=== PATIENT | female | born 1985 | race Caucasian/White ===

== ENCOUNTER 2017-09-05 13:31 | Emergency (ER) | payer OTHER, SELFPAY ==
[2017-09-05] MEDS ORDERED: Metoclopramide HCl 10 MG/2 ML VIAL ONE (14:08)
[2017-09-05] MEDS ORDERED: Dicyclomine 20 MG TAB ONE (14:08)
[2017-09-05 14:38] LABS: #Basophils 0.1 thou/uL (0.0-0.2); #Eosinphils 0.1 thou/uL (0.0-0.7); #Lymphocytes 2.3 thou/uL (1.20-3.40); #Monocytes 0.3 thou/uL (0.11-0.59); #Neutrophils 4.8 thou/uL (1.40-6.50); %Basophils 0.9 % (0.0-1.0); %Eosinophils 1.2 % (0.0-10.0); %Lymphocytes 30.5 % (21.0-51.0); %Monocytes 3.8 % (0.0-10.0); %Neutrophils 63.6 % (42.0-75.0); Hemoglobin 12.6 g/dL (12.0-16.0); Mean Corpuscular HGB CONC 34.6 g/dL (32.0-36.0); Mean Corpuscular Hemoglobin 30.4 pg (27.0-31.0); Mean Corpuscular Volume 87.9 fL (78.0-98.0); Mean Platelet Volume 9.5 fL (7.4-10.4); Platelet Count 164 thou/uL (130-400); Red Blood Cell (RBC) Count 4.14 mill/uL (4.20-5.40); White Blood Cell (WBC) Count 7.6 thou/uL (4.8-10.8)
[2017-09-05] MEDS ORDERED: HYDROcodone/Acetaminophen 10/325 mg Tablet ONE ×2 (14:42→14:43)
[2017-09-05 14:45] LABS: BHCG - Serum Negative (NEGATIVE); Pregs Control Background? CLEAR/WHITE (CLR/WHITE); Pregs Control Bar Appear? YES (CONTROL BAR)
[2017-09-05 14:50] LABS: Bilirubin Negative (Negative); Blood, Urine Negative (Negative); Clarity Clear (Clear); Glucose, Urine (Dipstick) Negative (Negative); Leukocyte Negative (Negative); Nitrite Negative (Negative); Protein, Urine (Dipstick) Trace mg/dL (Neg-Trace); Specific Gravity, Urine 1.025 (1.005-1.030); Urobilinogen 0.2 mg/dL (0.2-1.0); pH, Urine 7.5 (5.0-9.0)
[2017-09-05 14:53] LABS: Pregnancy Test - Urine (BHCG) Negative (Negative); Pregu Control Background? CLEAR/WHITE (CLR/WHITE); Pregu Control Bar Appear? YES (CONTROL BAR); Specific Gravity 1.025 (1.002-1.036)
[2017-09-05 14:54] LABS: ALT (SGPT) 12 U/L (8-55); AST (SGOT) 14 U/L (5-34); Albumin 4.2 g/dL (3.5-5.0); Alkaline Phosphatase 40 U/L (40-150); Anion Gap 12 mmol/L (10-20); BUN (Urea Nitrogen) 16 mg/dL (7.0-18.7); Bilirubin, Total 0.3 mg/dL (0.2-1.2); Calc. Creatinine Clearance 0 mL/min (70-130); Carbon Dioxide 26 mmol/L (22-29); Chloride 106 mmol/L (98-107); Estimated GFR-MDRD Greater than 90; Globulin 2.6 g/dL (2.4-3.5); Glucose 83 mg/dL (70-105); Potassium 3.7 mmol/L (3.5-5.1); Protein, Total 6.8 g/dL (6.0-8.3); Sodium 140 mmol/L (136-145)
--- NOTE | 2017-09-05 16:07 | ULT ---
PELVIC SONOGRAM TRANSABDOMINAL AND TRANSVAGINAL IMAGING WITH DUPLEX EVALUATION: History: Pelvic pain. Prior surgery. FINDINGS: Urinary bladder is unremarkable. The uterus and right ovary are surgically absent. No free fluid. Left ovary is 3.3 cm and has a normal appearance with good color and spectral doppler flow. IMPRESSION: Status post hysterectomy and right oophorostomy. No abnormalities of the left adnexa apparent. POS: [facility]
--- NOTE | 2017-09-05 16:48 | CT ---
CT ABDOMEN AND PELVIS WITH IV CONTRAST: Date: 09/05/17 HISTORY: Right lower quadrant abdominal pain and nausea. COMPARISON: Noncontrast CT abdomen and pelvis on 11/01/11. FINDINGS: The lung bases are clear. The osseous structures have a normal appearance. Post cholecystectomy changes are again seen. The liver, spleen, pancreas, bilateral adrenal glands, kidneys, abdominal aorta, and urinary bladder demonstrate a normal CT appearance. Small portion of the appendix is visualized and does appear normal in caliber and filled with gas. Th is is best seen on the coronal images. No cecal apical thickening is seen. There is trace amount of free fluid seen in the right lower hemipelvis. The left ovary is prominent in size. There is a low density focus seen in the left ovary measuring 1. 8 cm, which may represent an involuting left ovarian cyst or dominant follicle. IMPRESSION: 1. No acute findings are seen in the abdomen or pelvis. While the entire appendix is not visualized, the visualized portions of the appendix are normal in caliber, and there are no definite secondary s igns to suggest appendicitis. 2. Trace amount of free fluid in the lower right hemipelvis, probably physiologic in origin. 3. Post cholecystectomy changes. 4. Hysterectomy. POS: [facility]
== END 2017-09-05 16:45 | disposition home or self-care (01) ==
LOC: SCSER 13:31
DX: N83.202 Unspecified ovarian cyst, left side (principal); K21.9 Gastro-esophageal reflux disease without esophagitis; D50.0 Iron deficiency anemia secondary to blood loss (chronic); J45.909 Unspecified asthma, uncomplicated; F41.9 Anxiety disorder, unspecified; Z87.891 Personal history of nicotine dependence; Z79.899 Other long term (current) drug therapy
CPT/HCPCS: 74177; 76856; 80053; 81003; 81025; 84703; 85025; 87086; 87480; 87510; 87660; 96374; J2765